=== PATIENT | male | born 1995 | race Caucasian/White ===

== ENCOUNTER 2016-05-28 12:26 | Emergency (ER) | payer SELFPAY ==
[~2016-05-28] VITALS: Ht 170.2 cm; Wt 102.1 kg
[~2016-05-28 12:26] MED LIST: CETI10CA PO; FLUT16SP22 NS; KETO10TA PO; LVT.05T PO; ONDA4TAB8 PO; ORPH100T PO
[2016-05-28] MEDS ORDERED: ACETAMINOPHEN 325 MG TABLET/CAPLET (TYLENOL) PO STA (12:44)
--- NOTE | 2016-05-28 12:51 | ED Lower Extremity ---
General Chief Complaint: Lower Extremity Stated Complaint: LEG PAIN Nursing Triage Note: PT CO OF NUMBNESS IN EXT BILATERALLY, ARRIVED BY EMS FROM WORK, PT STATES HAS HAD N/V/D FOR APPROX 2 DAYS, PT STATES IS UNDER ALOT OF STRESS W WORK AND SCHOOL. PT STATES HAS ALSO HAD FEVER.MASK APPLIED UPON ARRIVAL Nursing Sepsis Screen: No Definite Risk History of Present Illness Time seen by provider: 12:30 Initial Comments Patient presents via EMS for lower extremity weakness. He also reports having fevers, cough, nausea, vomiting, & diarrhea for 3 days. Onset: other (3 days) Severity: moderate Pain/Injury Location: bilateral hip, bilateral leg, bilateral knee Method of Injury: unknown Modifying Factors: Improves With Rest Allergies and Home Medications Allergies Coded Allergies: No Known Drug Allergies (Unverified , 12/25/11) Home Medications Levothyroxine Sodium 50 Mcg Tablet 1 EACH PO DAILY (Reported) Constitutional: no symptoms reported see HPI EENTM: no symptoms reported see HPINo ear discharge, No ear pain, No hearing loss, No nose congestion, No throat pain Respiratory: see HPI cough dyspnea on exertion Cardiovascular: no symptoms reported see HPI Gastrointestinal: no symptoms reported diarrhea (last episode yesterday.) loss of appetite nausea vomiting (30 minutes prior to arrival, ) Genitourinary: no symptoms reported see HPI Musculoskeletal: see HPI joint pain muscle pain (bilateral lower extremities) muscle cramps Skin: no symptoms reported see HPI Psychiatric/Neurological: No Symptoms Reported See HPI All Other Systems Reviewed Negative Unless Noted: Yes Past Oxilynb-Lubznw-Whbyxn Hx Patient Social History Alcohol Use: Denies Use Recreational Drug Use: No Smoking Status: Never a Smoker Recent Foreign Travel: No Contact w/Someone Who Travel: No Recent Infectious Disease Expo: No Recent Hopitalizations: No Physical Abuse Screen: No Sexual Abuse: No Surgeries HX Surgeries: Yes (MOLE REMOVAL) Surgeries: Tonsillectomy Respiratory Hx Respiratory Disorders: No Cardiovascular Hx Cardiac Disorders: No Neurological Hx Neurological Disorders: No Reproductive System Hx Reproductive Disorders: No Genitourinary Hx Genitourinary Disorders: No Gastrointestinal Hx Gastrointestinal Disorders: No Musculoskeletal Hx Musculoskeletal Disorders: No Endocrine Hx Endocrine Disorders: Yes Endocrine Disorders: Hypothyroidsim HEENT HX ENT Disorders: No Cancer Hx Cancer: No Psychosocial Hx Psychiatric Problems: No Integumentary HX Skin/Integumentary Disorder: No Blood Transfusions Hx Blood Disorders: No Reviewed Nursing Assessment Reviewed/Agree w Nursing PMH: Yes Physical Exam Vital Signs Vital Sign - Last 12Hours 05/28/16 12:26 Temp 101.0 Pulse 124 Resp 20 B/P 139/78 Pulse Ox 95 O2 Delivery Room Air Capillary Refill : Less Than 3 Seconds General Appearance: WD/WN no apparent distress HEENT: PERRL/EOMI normal ENT inspection TMs normal pharynx normal Neck: non-tender full range of motion normal inspectionNo lymphadenopathy (R) , No lymphadenopathy (L) Cardiovascular: normal peripheral pulses regular rate, rhythm no edema no gallop no JVD no murmur Respiratory: chest non-tender lungs clear normal breath sounds no respiratory distress no accessory muscle use Gastrointestinal: normal bowel sounds soft no organomegaly no pulsatile massNo distended, No guarding, No rebound, tenderness (generalized)No hepatomegaly, No spleenomegaly Back: normal inspection no CVA tenderness no vertebral tenderness Hips: bilateral hip non-tender, bilateral hip normal inspection, bilateral hip limited range of motion (secondary to muscle weakness) Legs: bilateral leg non-tender, bilateral leg normal inspection, bilateral leg limited range of motion (secondary to muscle weakness) Knees: bilateral knee non-tender, bilateral knee normal inspection Ankles: bilateral ankle non-tender, bilateral ankle normal inspection, bilateral ankle normal range of motion Feet: bilateral foot non-tender, bilateral foot normal inspection, bilateral foot normal range of motion Reflexes: 2+ knee (R), 2+ knee (L), 2+ ankle (R), 2+ ankle (L) Neurologic/Tendon: normal sensation normal motor functions normal tendon functions responds to pain Neurologic/Psychiatric: no motor/sensory deficits alert normal mood/affect oriented x 3 Skin: normal color diaphoresis Lymphatic: no adenopathy Comments On initial exam patient has limited motion in the knees bilaterally and hips, secondary to muscle pain and spasms. His neurovascular status is intact bilateral lower extremities. Negative Homans sign bilaterally. Progress/Results/Core Measures Results/Orders Lab Results Laboratory Tests Test 05/28/16 12:25 05/28/16 13:32 Range/Units Alanine Aminotransferase (ALT/SGPT) 23 0-55 U/L Albumin 4.1 3.2-4.5 G/DL Alkaline Phosphatase 48 40-136 U/L Anion Gap 13 5-14 MMOL/L Aspartate Amino Transf (AST/SGOT) 53 H 5-34 U/L BUN/Creatinine Ratio 9 Basophils # (Auto) 0.0 0.0-0.1 10^3/uL Basophils (%) (Auto) 0 0-10 % Blood Urea Nitrogen 10 7-18 MG/DL Calcium Level 8.7 8.5-10.1 MG/DL Carbon Dioxide Level 18 L 21-32 MMOL/L Chloride Level 106 98-107 MMOL/L Creatinine 1.10 0.60-1.30 MG/DL Eosinophils # (Auto) 0.1 0.0-0.3 10^3/uL Eosinophils (%) (Auto) 1 0-10 % Estimat Glomerular Filtration Rate > 60 Glucose Level 88 70-105 MG/DL Hematocrit 41 40-54 % Hemoglobin 14.6 13.3-17.7 G/DL Lymphocytes # (Auto) 1.3 1.0-4.0 X 10^3 Lymphocytes (%) (Auto) 20 12-44 % Mean Corpuscular Hemoglobin 30 25-34 PG Mean Corpuscular Hemoglobin Concent 35 32-36 G/DL Mean Corpuscular Volume 84 80-99 FL Mean Platelet Volume 10.2 7.4-10.4 FL Monocytes # (Auto) 0.6 0.0-1.0 X 10^3 Monocytes (%) (Auto) 9 0-12 % Neutrophils # (Auto) 4.6 1.8-7.8 X 10^3 Neutrophils (%) (Auto) 70 42-75 % Platelet Count 207 130-400 10^3/uL Potassium Level 3.8 3.6-5.0 MMOL/L Red Blood Count 4.92 4.35-5.85 10^6/uL Red Cell Distribution Width 12.1 10.0-14.5 % Sodium Level 137 135-145 MMOL/L Total Bilirubin 0.7 0.1-1.0 MG/DL Total Protein 6.7 6.4-8.2 G/DL White Blood Count 6.5 4.3-11.0 10^3/uL Urine Bacteria NEGATIVE /HPF Urine Bilirubin NEGATIVE NEGATIVE Urine Casts NONE /LPF Urine Clarity CLEAR Urine Color YELLOW Urine Crystals NONE /LPF Urine Culture Indicated NO Urine Glucose (UA) NEGATIVE NEGATIVE Urine Ketones NEGATIVE NEGATIVE Urine Leukocyte Esterase NEGATIVE NEGATIVE Urine Mucus NEGATIVE /LPF Urine Nitrite NEGATIVE NEGATIVE Urine Protein 1+ H NEGATIVE Urine RBC NONE /HPF Urine RBC (Auto) NEGATIVE NEGATIVE Urine Specific [place] 1.025 H 1.016-1.022 Urine Squamous Epithelial Cells 0-2 /HPF Urine Urobilinogen NORMAL NORMAL MG/DL Urine WBC NONE /HPF Urine pH 6 5-9 Micro Results Microbiology 05/28/16 Influenza Types A,B Antigen (ANTHONY) - Final, Complete My Orders Orders-GAYE WALTERS Cbc With Automated Diff (05/28/16 12:44) Comprehensive Metabolic Panel (05/28/16 12:44) Ua Culture If Indicated (05/28/16 12:44) Influenza A And B Antigens (05/28/16 12:44) Acetaminophen Tablet/Caplet (Tylenol T (05/28/16 12:44) Ibuprofen Tablet (Motrin Tablet) (05/28/16 13:38) Vital Signs/I&O Vital Sign - Last 12Hours 05/28/16 05/28/16 12:26 15:21 Temp 101.0 99.5 Pulse 124 88 Resp 20 20 B/P 139/78 Pulse Ox 95 95 O2 Delivery Room Air Blood Pressure Mean: 98 Progress Note : Time: 12:30 Progress Note Initial evaluation completed, Tylenol 650 mg by mouth to be given. CBC UA CMP and influenza testing. Patient did not get an Influenza vaccine this year. 1335 Temp 102.2; Ibuprofen 800 mg po. 1345 required assistance of two staff for patient to stand to obtain UA. He has slight improvement in the motion in his hips and knees. Weakness when trying to stand. 1445 Temp down to 99, patient reports that he is feeling better. He can actively flex and extend his knees and hips, with less pain. He can ambulate with no assistance. He reports that Muscle spasms and cramps are improving. Departure Impression Impression: Primary Impression: Viral syndrome Disposition: HOME, SELF-CARE Condition: Stable Departure-Patient Inst. Referrals: ADALGISA VASQUEZ MD (PCP/Family) Primary Care Physician Patient Instructions: VIRAL SYNDROME Add. Discharge Instructions: All discharge instructions reviewed with patient and/or family. Voiced understanding. Rest, increase fluid intake. Return to work when afebrile. Alternate Tylenol 650 mg and Ibuprofen 800 mg every 4 hours. Return to Emergency Dept or Primary Care Provider if symptoms worsen. Work/School Note: Work Release Form Return to Work: May 30, 2016 Restrictions: No Restrictions, Return-No Fever (24hrs) SELENA,GAYE CAREER SERVICES OFFICER May 28, 2016 12:51
[2016-05-28 12:52] LABS: BASOPHILS % (AUTO) 0 % (0-10); EOSINOPHILS # (AUTO) 0.1 10^3/uL (0.0-0.3); EOSINOPHILS % (AUTO) 1 % (0-10); LYMPHOCYTES # (AUTO) 1.3 X 10^3 (1.0-4.0); LYMPHOCYTES % (AUTO) 20 % (12-44); MEAN CORPUSCULAR HEMOGLOBIN 30 PG (25-34); MEAN CORPUSCULAR HGB CONC 35 G/DL (32-36); MEAN CORPUSCULAR VOLUME 84 FL (80-99); MEAN PLATELET VOLUME 10.2 FL (7.4-10.4); MONOCYTES # (AUTO) 0.6 X 10^3 (0.0-1.0); MONOCYTES % (AUTO) 9 % (0-12); NEUTROPHILS # (AUTO) 4.6 X 10^3 (1.8-7.8); NEUTROPHILS % (AUTO) 70 % (42-75); PLATELET COUNT 207 10^3/uL (130-400); RED BLOOD COUNT 4.92 10^6/uL (4.35-5.85); RED CELL DISTRIBUTION WIDTH 12.1 % (10.0-14.5); WHITE BLOOD COUNT 6.5 10^3/uL (4.3-11.0)
[2016-05-28 13:06] LABS: ALANINE AMINOTRANSFERASE 23 U/L (0-55); ALBUMIN 4.1 G/DL (3.2-4.5); ANION GAP 13 MMOL/L (5-14); ASPARTATE AMINO TRANSFERASE 53 U/L (5-34); BILIRUBIN,TOTAL 0.7 MG/DL (0.1-1.0); BLOOD UREA NITROGEN 10 MG/DL (7-18); BUN/CREATININE RATIO 9; CALCIUM 8.7 MG/DL (8.5-10.1); CARBON DIOXIDE 18 MMOL/L (21-32); CHLORIDE 106 MMOL/L (98-107); GFR ESTIMATED > 60; GLUCOSE 88 MG/DL (70-105); POTASSIUM 3.8 MMOL/L (3.6-5.0); SODIUM 137 MMOL/L (135-145); TOTAL PROTEIN 6.7 G/DL (6.4-8.2)
[2016-05-28] MEDS ORDERED: IBUPROFEN 800 MG (MOTRIN) TAB PO STA (13:38)
[2016-05-28 13:42] LABS: BILIRUBIN,URINE NEGATIVE (NEGATIVE); KETONES,URINE NEGATIVE (NEGATIVE); LEUKOCYTE ESTERASE ,URINE NEGATIVE (NEGATIVE); NITRITE,URINE NEGATIVE (NEGATIVE); PH,URINE 6 (5-9); PROTEIN,URINE 1+ (NEGATIVE); UROBILINOGEN,URINE NORMAL (NORMAL)
[2016-05-28 13:49] LABS: SQUAMOUS EPITHELIAL CELL,UR 0-2 /HPF
[2016-05-28 15:21] VITALS: BP 128/78
== END 2016-05-28 15:21 | disposition home or self-care (01) ==
LOC: EDUNIT# 12:26 → ER 12:27
DX: R50.9 Fever, unspecified (principal); B34.9 Viral infection, unspecified
CPT/HCPCS: 36415; 80053; 81000; 85025; 87804

== ENCOUNTER 2016-09-09 11:39 | Emergency (ER) | payer SELFPAY ==
[~2016-09-09] VITALS: Ht 167.6 cm; Wt 106.6 kg
[2016-09-09] MEDS ORDERED: ERYT1OIN6 OP (12:19)
--- NOTE | 2016-09-09 12:19 | ED EENT ---
History of Present Illness General Chief Complaint: Eye Problems Stated Complaint: L EYE POSS PINK EYE Source: patient Exam Limitations: no limitations History of Present Illness Time seen by provider: 12:16 Initial Comments Brought to ER by his mother with reports of a reddened left eye since yesterday. No known foreign bodies, no discomfort no vision changes. He's had a bit of discharge in the mornings. He does not wear contact lenses Timing/Duration: abrupt Severity: moderate Location: eye (L) Associated Symptoms: denies symptoms Allergies and Home Medications Allergies Coded Allergies: No Known Drug Allergies (Unverified , 12/25/11) Home Medications Levothyroxine Sodium 50 Mcg Tablet, 1 EACH PO DAILY, (Reported) Review of Systems Constitutional: see HPI Eyes: See HPI Ears: No Symptoms Reported Nose: no symptoms reported Mouth: no symptoms reported Throat: no symptoms reported Respiratory: no symptoms reported Cardiovascular: no symptoms reported Musculoskeletal: no symptoms reported Past Jumecxl-Qkxads-Sumvvs Hx Patient Social History Recent Foreign Travel: No Contact w/Someone Who Travel: No Recent Hopitalizations: No Surgeries HX Surgeries: Yes (MOLE REMOVAL) Surgeries: Tonsillectomy Respiratory Hx Respiratory Disorders: No Cardiovascular Hx Cardiac Disorders: No Neurological Hx Neurological Disorders: No Reproductive System Hx Reproductive Disorders: No Genitourinary Hx Genitourinary Disorders: No Gastrointestinal Hx Gastrointestinal Disorders: No Musculoskeletal Hx Musculoskeletal Disorders: No Endocrine Hx Endocrine Disorders: Yes Endocrine Disorders: Hypothyroidsim HEENT HX ENT Disorders: No Cancer Hx Cancer: No Psychosocial Hx Psychiatric Problems: No Integumentary HX Skin/Integumentary Disorder: No Blood Transfusions Hx Blood Disorders: No Physical Exam General Appearance: WD/WN, no apparent distress Eyes: left eye other (there is some conjunctival erythema of the left eye with a bit of drainage, matting lateral canthus), bilateral eye EOMI, bilateral eye PERRL Ears: bilateral ear TM normal, bilateral ear auricle normal, bilateral ear canal normal Neck: non-tender, full range of motion Respiratory: normal breath sounds, no respiratory distress, no accessory muscle use Gastrointestinal: normal bowel sounds, non tender, soft Neurologic/Psychiatric: alert, normal mood/affect, oriented x 3 Skin: normal color, warm/dry Departure Impression Impression: Primary Impression: Conjunctivitis Disposition: 01 HOME, SELF-CARE Condition: Stable Departure-Patient Inst. Decision time for Depature: 12:17 Referrals: ADALGISA VASQUEZ MD (PCP/Family) Primary Care Physician Patient Instructions: Conjunctivitis ([place]) (DC) Add. Discharge Instructions: 1. Apply the antibiotic ointment as directed 2. Return to ER for any worsening 3. See your eye doctor next week All discharge instructions reviewed with patient and/or family. Voiced understanding. Scripts Erythromycin Base (Erythromycin Opthalmic Ointment) 1 Gm Oint...g. 0 OP Q6H, #1 TUBE 1/2 inch every 6 hours 4 days Prov: SYBIL SANCHEZ APRN 09/09/16 Work/School Note: Work Release Form Date Seen in the Emergency Department: Sep 09, 2016 Return to Work: Sep 11, 2016 Restrictions: No Restrictions SYBIL SANCHEZ APRN Sep 09, 2016 12:19
[2016-09-09 12:21] VITALS: BP 136/85
== END 2016-09-09 12:21 | disposition home or self-care (01) ==
LOC: EDUNIT# 11:39 → ER 11:41
DX: H10.32 Unspecified acute conjunctivitis, left eye (principal)
CPT/HCPCS: 99282

== ENCOUNTER 2016-12-13 06:52 | Emergency (ER) | payer OTHER ==
[~2016-12-13] VITALS: Ht 170.2 cm; Wt 108.9 kg
[~2016-12-13 06:52] MED LIST changes: +ERYT1OIN6 OP
[2016-12-13] MEDS ORDERED: LIDOCAINE/EPI 2% 1:100,00 (XYLOCAINE) 20 ML VIAL ONE (07:14)
--- NOTE | 2016-12-13 07:17 | ED Integumentary General ---
General Stated Complaint: LOWER BACK PAIN Source: patient History of Present Illness Time seen by provider: 07:12 Initial Comments PT ARRIVES VIA POV C/O PAIN AND SWELLING TO LOWER BACK/UPPER BUTTOCKS AREA SINCE Sunday12/09/16 NO INJURY NO FEVER NO PRIOR HISTORY OF SIMILAR NO DRAINAGE FROM AREA HAS NOT TAKEN ANYTHING FOR PAIN PCP: DR. VASQUEZ Allergies and Home Medications Allergies Coded Allergies: No Known Drug Allergies (Unverified , 12/25/11) Home Medications Clindamycin HCl 300 Mg Capsule, 300 MG PO QID, #40 Prescribed by: THEODORE GARCIA on 12/13/16 0753 Erythromycin Base 1 Gm Oint...g., 0 OP Q6H, #1 1/2 inch every 6 hours 4 days Prescribed by: SYBIL SANCHEZ on 09/09/16 1219 Hydrocodone/Ibuprofen 1 Each Tablet, 1-2 EACH PO Q4H, #20 Prescribed by: THEODORE GARCIA on 12/13/16 0753 Levothyroxine Sodium 50 Mcg Tablet, 1 EACH PO DAILY, (Reported) Constitutional: no symptoms reported Genitourinary: no symptoms reported Musculoskeletal: see HPI Skin: see HPI Psychiatric/Neurological: No Symptoms Reported Endocrine: No Symptoms Reported Past Khjvaba-Cagozi-Qcytql Hx Patient Social History Recent Foreign Travel: No Contact w/Someone Who Travel: No Recent Hopitalizations: No Immunizations Up To Date Tetanus Booster (TDap): Less than 5yrs PED Vaccines UTD: Yes Surgeries HX Surgeries: Yes (MOLE REMOVAL) Surgeries: Tonsillectomy Respiratory Hx Respiratory Disorders: No Cardiovascular Hx Cardiac Disorders: No Neurological Hx Neurological Disorders: No Reproductive System Hx Reproductive Disorders: No Genitourinary Hx Genitourinary Disorders: No Gastrointestinal Hx Gastrointestinal Disorders: No Musculoskeletal Hx Musculoskeletal Disorders: No Endocrine Hx Endocrine Disorders: Yes Endocrine Disorders: Hypothyroidsim HEENT HX ENT Disorders: No Cancer Hx Cancer: No Psychosocial Hx Psychiatric Problems: No Integumentary HX Skin/Integumentary Disorder: No Blood Transfusions Hx Blood Disorders: No Physical Exam Vital Signs Vital Sign - Last 12Hours 12/13/16 07:18 Temp 98.2 Pulse 90 Resp 16 B/P (MAP) 125/100 Pulse Ox 98 O2 Delivery Ambu-Bag Capillary Refill : General Appearance: no apparent distress, obese, other (LOOKS UNCOMFORTABLE) Back: other (LARGE PILONIDIAL CYST/ABSCESS, NO DRAINAGE. NO STREAKS) Neurologic/Psychiatric: diamond polisher II-XII nml as tested, no motor/sensory deficits, alert, oriented x 3 Skin: normal color, warm/dry, other ( ABOVE) I&D : Site: PILONIDAL AREA Blade Size: 11 I & D Procedure: betadine prep, sterile drapes applied, gauze wick placed, Wound Packing Packing/Drain: Idoform 1/ Progress AREA CLEANSED WITH BETADINE STERILE DRAPES PLACED INJECTED WITH 2% LIDOCAINE/EPI INCISED WITH #11 BLADE PROFUSE AMOUNT OF PURULENT, FOUL-SMELLING DRAINAGE EXPELLED PROBED TO BREAK UP LOCULATIONS IRRIGATED WITH STERIL SALINE 1/4" IODOFORM GAUZE PACKING PLACED DRESSED WITH STERILE DRESSING PT TOLERATED WELL Progress/Results/Core Measures Results/Orders My Orders Orders - THEODORE GARCIA DO Lidocaine/Epi 2% 1:100,000 (Xylocaine/Ep (12/13/16 07:14) Wound Culture (12/13/16 07:48) Medications Given in ED Current Medications Medications Dose Ordered Sig/Mc Route Start Time Stop Time Status Last Admin Dose Admin Lidocaine/ Epinephrine 20 ml STK-MED ONCE .ROUTE 12/13/16 07:14 12/13/16 07:21 DC 12/13/16 07:33 20 ML Vital Signs/I&O Vital Sign - Last 12Hours 12/13/16 12/13/16 07:18 07:59 Temp 98.2 97.8 Pulse 90 88 Resp 16 16 B/P (MAP) 125/100 Pulse Ox 98 98 O2 Delivery Ambu-Bag Departure Impression Impression: Primary Impression: Pilonidal cyst with abscess Disposition: 01 HOME, SELF-CARE Condition: Stable Departure-Patient Inst. Referrals: SENIA BAEZA MD, RACHEL L MD (PCP/Family) Primary Care Physician Patient Instructions: Abscess Incision and Drainage (DC), Pilonidal Cyst (DC) Add. Discharge Instructions: LEAVE PACKING IN PLACE--WILL NEED TO BE RE-PACKED EVERY [address] YOU MAY CHANGE DRESSING 1-2 TIMES A DAY OR MORE OFTEN IF NEEDED FOLLOW UP WITH DR. BAEZA THIS WEEK FOR FURTHER CARE Scripts Hydrocodone/Ibuprofen (Hydrocodone-Ibuprofen 7.5-200) 1 Each Tablet 1-2 EACH PO Q4H for Pain, #20 TAB Prov: THEODORE GARCIA DO 12/13/16 Clindamycin HCl (Clindamycin HCl) 300 Mg Capsule 300 MG PO QID for FOR INFECTION, #40 CAP Prov: THEODORE GARCIA DO 12/13/16 Images Torso/Trunk 1 - Severe, Cellulitis, Swelling, Tenderness THEODORE GARCIA DO Dec 13, 2016 07:17
[2016-12-13] MEDS ORDERED: HYDR-87 PO (07:53)
[2016-12-13] MEDS ORDERED: CLIN300C11 PO (07:53)
[2016-12-13 07:59] VITALS: BP 122/90
--- OUTSIDE RECORDS SUMMARY | 2016-12-20 21:35 | XMS REPORT | Continuity of Care Document ---
Author Author [facility] Address Unknown Phone Unavailable Allergies Active Description Code Type Severity Reaction Onset Reported/Identified Relationship to Patient Clinical Status Yes No Known Drug Allergies [id number] Drug Allergy Unknown N/ A 12/25/2011 Medications Problems Date Dx Coded Attending Type Code Diagnosis Diagnosed By 03/20/2009 SABRINA MARTINEZ DO3.89 MENINGOCOCCAL, OTHER SPECIFIED SINGLE BACTERIAL DISEASE 03/20/2009 SABRINA MARTINEZ DO V05.3 HEPATITIS VIRAL/ALL 03/20/2009 SABRINA MARTINEZ DO V05.4 VARICELLA, CHICKENPOX 03/20/2009 SABRINA MARTINEZ DO V06.5 DT, TETANUS-DIPHTHERIA [Td] ,TDAP 03/20/2009 SABRINA MARTINEZ DO V03.89 MENINGOCOCCAL, OTHER SPECIFIED SINGLE BACTERIAL DISEASE 03/20/2009 SABRINA MARTINEZ DO V05.3 HEPATITIS VIRAL/ALL 03/20/2009 SABRINA MARTINEZ DO V05.4 VARICELLA, CHICKENPOX 03/20/2009 SABRINA MARTINEZ DO V06.5 DT, TETANUS-DIPHTHERIA [Td] ,TDAP 03/20/2009 SABRINA MARTINEZ DO V03.89 MENINGOCOCCAL, OTHER SPECIFIED SINGLE BACTERIAL DISEASE 03/20/2009 SABRINA MARTINEZ DO V05.3 HEPATITIS VIRAL/ALL 03/20/2009 SABRINA MARTINEZ DO V05.4 VARICELLA, CHICKENPOX 03/20/2009 SABRINA MARTINEZ DO V06.5 DT, TETANUS-DIPHTHERIA [Td] ,TDAP 03/14/2013 SABRINA MARTINEZ DO V04.81 FLU SHOT 03/14/2013 SABRINA MARTINEZ DO V04.89 GARDASIL (HPV) DX 03/14/2013 MARTINEZ SABRINA SUBRAMANIAN V04.81 FLU SHOT 03/14/2013 MARTINEZ SABRINA SUBRAMANIAN V04.89 GARDASIL (HPV) DX 03/14/2013 SABRINA MARTINEZ DO V04.81 FLU SHOT 03/14/2013 SABRINA MARTINEZ DO V04.89 GARDASIL (HPV) DX 07/28/2015 Ot 709.9 07/28/2015 Ot V72.84 07/28/2015 Ot 216.5 07/28/2015 THEODORE GARCIA DO Ot R10.31 RIGHT LOWER QUADRANT PAIN 05/24/2016 Ot 709.9 SKIN DISORDER NOS 05/24/2016 Ot V72.84 EXAM PRE-OPERATIVE NOS 05/24/2016 Ot 216.5 BENIGN GAYATRI SKIN TRUNK 05/28/2016 SELENA GAYE NICKIE Ot B34.9 VIRAL INFECTION, UNSPECIFIED 05/28/2016 SLEENA GAYE NICKIE Ot R50.9 FEVER, UNSPECIFIED 09/09/2016 SYBIL SANCHEZ APRN Ot H10.32 UNSPECIFIED ACUTE CONJUNCTIVITIS, LEFT E 09/09/2016 SYBIL SANCHEZ APRN Ot H57.9 UNSPECIFIED DISORDER OF EYE AND ADNEXA 09/11/2016 SYBIL SANCHEZ APRN Ot H10.32 UNSPECIFIED ACUTE CONJUNCTIVITIS, LEFT E 09/11/2016 SYBIL SANCHEZ APRN Ot H57.9 UNSPECIFIED DISORDER OF EYE AND ADNEXA 11/09/2016 Ot 709.9 SKIN DISORDER NOS 11/09/2016 Ot V72.84 EXAM PRE-OPERATIVE NOS 11/09/2016 Ot 216.5 BENIGN GAYATRI SKIN TRUNK 11/29/2016 Ot 709.9 SKIN DISORDER NOS 11/29/2016 Ot V72.84 EXAM PRE-OPERATIVE NOS 11/29/2016 Ot 216.5 BENIGN GAYATRI SKIN TRUNK 12/13/2016 Ot 709.9 SKIN DISORDER NOS 12/13/2016 Ot V72.84 EXAM PRE-OPERATIVE NOS 12/13/2016 Ot 216.5 BENIGN GAYATRI SKIN TRUNK Procedures Results Test Result Range Complete blood count (CBC) with automated white blood cell (WBC) differential - 05/28/16 12:25 Blood leukocytes automated count (number/volume) 6.5 10*3/ uL 4.3-11.0 Blood erythrocytes automated count (number/volume) 4.92 10*6 /uL 4.35-5.85 Venous blood hemoglobin measurement (mass/volume) 14.6 g/dL 13.3-17.7 Blood hematocrit (volume fraction) 41 % 40-54 Automated erythrocyte mean corpuscular volume 84 [foz_us] 80-99 Automated erythrocyte mean corpuscular hemoglobin (mass per erythrocyte) 30 pg 25-34 Automated erythrocyte mean corpuscular hemoglobin concentration measurement ( mass/volume) 35 g/dL 32-36 Automated erythrocyte distribution width ratio 12.1 % 10.0-14.5 Automated blood platelet count (count/volume) 207 10*3/uL 130-400 Automated blood platelet mean volume measurement 10.2 [foz_ us] 7.4-10.4 Automated blood neutrophils/100 leukocytes 70 % 42-75 Automated blood lymphocytes/100 leukocytes 20 % 12-44 Blood monocytes/100 leukocytes 9 % 0-12 Automated blood eosinophils/100 leukocytes 1 % 0-10 Automated blood basophils/100 leukocytes 0 % 0-10 Blood neutrophils automated count (number/volume) 4.6 10*3 1.8-7.8 Blood lymphocytes automated count (number/volume) 1.3 10*3 1.0-4.0 Blood monocytes automated count (number/volume) 0.6 10*3 0.0-1.0 Automated eosinophil count 0.1 10*3/uL 0.0-0.3 Automated blood basophil count (count/volume) 0.0 10*3/uL 0.0-0.1 Comprehensive metabolic panel - 05/28/16 12:25 Serum or plasma sodium measurement (moles/volume) 137 mmol/ L 135-145 Serum or plasma potassium measurement (moles/volume) 3.8 mmol/L 3.6-5.0 Serum or plasma chloride measurement (moles/volume) 106 mmol /L 98-107 Carbon dioxide 18 mmol/L 21-32 Serum or plasma anion gap determination (moles/volume) 13 mmol/L 5-14 Serum or plasma urea nitrogen measurement (mass/volume) 10 mg/dL 7-18 Serum or plasma creatinine measurement (mass/volume) 1.10 mg /dL 0.60-1.30 Serum or plasma urea nitrogen/creatinine mass ratio 9 NRG Serum or plasma creatinine measurement with calculation of estimated glomerular filtration rate > NRG Serum or plasma glucose measurement (mass/volume) 88 mg/dL 70-105 Serum or plasma calcium measurement (mass/volume) 8.7 mg/dL 8.5-10.1 Serum or plasma total bilirubin measurement (mass/volume) 0.7 mg/dL 0.1-1.0 Serum or plasma alkaline phosphatase measurement (enzymatic activity/volume) 48 U/L 40-136 Serum or plasma aspartate aminotransferase measurement (enzymatic activity/ volume) 53 U/L 5-34 Serum or plasma alanine aminotransferase measurement (enzymatic activity/volume ) 23 U/L 0-55 Serum or plasma protein measurement (mass/volume) 6.7 g/dL 6.4-8.2 Serum or plasma albumin measurement (mass/volume) 4.1 g/dL 3.2-4.5 Influenza virus A and B antigen detection - 05/28/16 12:25 FLU RESULT NEGATIVE FOR INFLUENZA A AND B ANTIGENS BY IA NRG Complete urinalysis with reflex to culture - 05/28/16 13:32 Urine color determination YELLOW NRG Urine clarity determination CLEAR NRG Urine pH measurement by test strip 6 5- 9 Specific gravity of urine by test strip 1.025 1.016-1.022 Urine protein assay by test strip, semi-quantitative 1+ NEGATIVE Urine glucose detection by automated test strip NEGATIVE NEGATIVE Erythrocytes detection in urine sediment by light microscopy NEGATIVE NEGATIVE Urine ketones detection by automated test strip NEGATIVE NEGATIVE Urine nitrite detection by test strip NEGATIVE NEGATIVE Urine total bilirubin detection by test strip NEGATIVE NEGATIVE Urine urobilinogen measurement by automated test strip (mass/volume) NORMAL NORMAL Urine leukocyte esterase detection by dipstick NEGATIVE NEGATIVE Automated urine sediment erythrocyte count by microscopy (number/high power field) NONE NRG Automated urine sediment leukocyte count by microscopy (number/high power field ) NONE NRG Bacteria detection in urine sediment by light microscopy NEGATIVE NRG Squamous epithelial cells detection in urine sediment by light microscopy 0-2 NRG Crystals detection in urine sediment by light microscopy NONE NRG Casts detection in urine sediment by light microscopy NONE NRG Mucus detection in urine sediment by light microscopy NEGATIVE NRG Complete urinalysis with reflex to culture NO NRG Gram stain microscopy - 12/13/16 07:45 GRAM STAIN RESULT RARE GRAM POSITIVE ARNULFO NRG Bacteria identification in wound by culture - 12/13/16 07:45 Bacteria identification in wound by culture [id number] NRG FREE TEXT EXTERNAL STREPTOCOCCUS CONSTELLATUS NRG QUANTITY OF GROWTH Moderate Growth NRG FREE TEXT ENTRY 2 (STREP.ANGINOSUS GROUP) NRG Encounters ACCT No. Visit Date/Time Discharge Status Pt. Type Provider Facility Loc./Unit Complaint [id number] 09/12/2013 14:58:00 09/12/2013 23: 59:59 CLS Outpatient SABRINA MARTINEZ DO [id number] 06/20/2013 15:19:00 06/20/2013 23: 59:59 CLS Outpatient SABRINA MARTINEZ DO [id number] 03/14/2013 15:22:00 03/14/2013 23: 59:59 [facility] Outpatient SABRINA MARTINEZ DO
[2016-12-21] MEDS ORDERED: HYDR-3816 PO (15:19)
== END 2016-12-13 07:59 | disposition home or self-care (01) ==
LOC: EDUNIT# 06:52 → ER 06:54
DX: L05.01 Pilonidal cyst with abscess (principal); E03.9 Hypothyroidism, unspecified; Z90.89 Acquired absence of other organs
CPT/HCPCS: 87070; 87077; 87205

== ENCOUNTER 2016-12-21 10:48 | Day surgery (SDC) | payer OTHER ==
[~2016-12-21] VITALS: Ht 170.2 cm; Wt 108.9 kg
[~2016-12-21 10:48] MED LIST changes: +CLIN300C11 PO; +HYDR-87 PO
[2016-12-21] MEDS ORDERED: ceFAZolin 1 GM/NS 50 ML IVPB IV ONE ×2 (11:15)
[2016-12-21] MEDS ORDERED: LEVO75TA6 PO (11:27)
[2016-12-21 11:31] VITALS: BP 144/83
[2016-12-21] MEDS ORDERED: BUP/EPI 0.5% 1:200,000 (MARCAINE) 10ML VIAL IJ ONE (12:20)
[2016-12-21] MEDS ORDERED: fentaNYL INJECTION 100 MCG/2 ML AMP ONE ×2 (12:59→13:52)
[2016-12-21] MEDS ORDERED: LACTATED RINGERS 1,000 ML IV PRN (13:03)
[2016-12-21] MEDS ORDERED: MIDAZOLAM 2 MG/2 ML (VERSED) VIAL IV ONE (13:15)
--- NOTE | 2016-12-21 13:27 | Progress Note-Pre Operative ---
Pre-Operative Progress Note H&P Reviewed The H&P was reviewed, patient examined and no changes noted. Date Seen by Provider: Dec 21, 2016 Time Seen by Provider: 13:15 Date H&P Reviewed: Dec 21, 2016 Time H&P Reviewed: 13:15 Pre-Operative Diagnosis: symptomatic pilonidal cyst SENIA BAEZA MD Dec 21, 2016 13:27
[2016-12-21] MEDS ORDERED: HYDROcodone/APAP 5 MG/325 MG (LORTAB) TAB PO PRN (13:30)
[2016-12-21] MEDS ORDERED: ACETAMINOPHEN 325 MG TABLET/CAPLET (TYLENOL) PO PRN (13:30)
[2016-12-21] MEDS ORDERED: morphine INJ 10 MG/ML 1ML (SYR OR VIAL) IV PRN (13:30)
[2016-12-21] MEDS ORDERED: ONDANSETRON 4 MG/2 ML (SDV) Z0FRAN IV PRN (13:30)
[2016-12-21] MEDS ORDERED: morphine INJ 10 MG/ML 1ML (SYR OR VIAL) ONE (14:24)
[2016-12-21] MEDS ORDERED: LIDOCAINE PF 2% 5 ML (XYLOCAINE) VIAL ONE (14:42)
[2016-12-21] MEDS ORDERED: proPOfol 200 MG/20 ML (DIPRIVAN) VIAL IV ONE (14:42)
[2016-12-21] MEDS ORDERED: ROCURONIUM 50 MG/5 ML (ZEMURON) VIAL IV ONE (14:42)
[2016-12-21] MEDS ORDERED: LACTATED RINGERS 2,000 ML IV ONE (14:42)
[2016-12-21] MEDS ORDERED: GLYCOPYRROLATE 0.2 MG/ML (ROBINUL) 2 ML VIAL ONE (14:42)
[2016-12-21] MEDS ORDERED: SEVOFLURANE (ULTANE) 15 ML INHAL SOLN ONE ×2 (14:42→15:14)
[2016-12-21] MEDS ORDERED: ONDANSETRON 4 MG/2 ML (SDV) Z0FRAN ONE (14:42)
--- NOTE | 2016-12-21 15:18 | Progress Note-Post Operative ---
Post-Operative Progess Note Surgeon (s)/Administrative Representative (s) Surgeon SENIA BAEZA MD Administrative Representative: jem headley GEOMATICS PROFESSOR Pre-Operative Diagnosis symptomatic pilonidal cyst Post-Operative Diagnosis same Procedure & Operative Findings Date of Procedure 12/21/16 Procedure Performed/Findings excision pilonidal cyst. intermediate flap closure 8x4cm Anesthesia Type GET Estimated Blood Loss Estimated blood loss (mL): minimal Specimens/Packing Specimens Removed pilonidal cyst SENIA BAEZA MD Dec 21, 2016 3:18 pm
[2016-12-21] MEDS ORDERED: HYDR-3816 PO (15:19)
--- NOTE | 2016-12-21 15:20 | Discharge Inst-Surgical ---
D/C Lap Instructions-FELISHA New, Converted, or Re-Newed RX: RX on Chart Follow Up Appt in 2 weeks Activity as tolerated No driving for 24 hours No driving while on pain medications Incentive Spirometry use every 2 hours while awake Regular Diet Symptoms to Report: Fever over 101 degree F, Nausea/Vomiting Infection Signs and Symptoms to report: Increased redness, Foul odor of wound, Increased drainage Bathing instructions: May shower Operative Area Clean/Dry; Keep incision clean/dry If any problems/questions: Contact your physician or go to Emergency Room SENIA BAEZA MD Dec 21, 2016 3:20 pm
[2016-12-21] MEDS ORDERED: NEOSTIGMINE (BLOXIVERZ ) 1 MG/1ML 10 ML VIAL ONE (15:23)
[2016-12-21 16:35] VITALS: BP 123/84
[2016-12-21 17:05] VITALS: BP 125/84
[2016-12-21 17:50] VITALS: BP 125/84
--- NOTE | 2016-12-22 11:08 | OPERATIVE REPORT ---
PROCEDURE PHYSICIAN: SENIA MATOS DATE OF PROCEDURE: 12/21/2016 ATTENDING PRIMARY CARE PHYSICIAN: Dr. Cecile Tran. PREOPERATIVE DIAGNOSIS: Chronic symptomatic pilonidal cyst. POSTOPERATIVE DIAGNOSIS: Chronic symptomatic pilonidal cyst. PROCEDURE: Excision of pilonidal cyst, dimensions 8 x 3 cm in size with intermediate flap closure. SURGEON: Dr. Matos. SENIOR [employer] WE[employer] APPLICATION DEVELOPER: Patrice Blunt APRN. ANESTHESIA: General endotracheal. ESTIMATED BLOOD LOSS: Minimal. FINDINGS: Acute on chronic pilonidal cyst with the excised dimensions approximately 8 x 3 cm in size. There are multiple chronic small sinus tracts. DISPOSITION: The patient tolerated the procedure well. Mr. Vishal Segundo is a 21-year-old male who was seen in the emergency department several days ago for pain and drainage of the sacral region. He reported this started several weeks ago and it has become painful and draining yellowish-green material. They did an incision and drainage of an abscess and was placed on antibiotics. On further questioning, he reports he has had some issues in the area multiple times before, however not as severe. Upon examination, he was found to have open area where the previous incision and drainage was performed. However, he also had some chronic sinus tracts just inferior to this consistent with a pilonidal cyst. PROCEDURE: The patient was brought to the operating room and after adequate IV pain and sedative medications and general endotracheal intubation, the patient was placed in the supine position and the buttocks taped laterally. The perineum was then prepped and draped in standard surgical fashion. The sinus tracts were then explored which went more inferiorly. We left the lacrimal probe in place then we proceeded to marked off the site of previous chronic pilonidal cyst sinus tract openings. The diameter of the excised lesion was approximately 8 x 3 cm in size. The skin was then excised using a 15 blade. All of the sinus tract encompassing the lacrimal probe, as well as any chronic inflammatory tissue was then excised using electrocautery. Specimen was sent to pathology. Good hemostasis was observed. We then proceeded with intermediate flap closure. We proceeded with creation of subcutaneous flap encompassing a portion of the gluteus butch muscle layers, as well as the subcutaneous fat, using electrocautery with visualization of good hemostasis. This layer was approximated over the coccyx using 2-0 Vicryl interrupted sutures. The superficial subcutaneous tissue was then reapproximated using 2-0 Vicryl interrupted sutures. Skin was closed using 3-0 nylon interrupted sutures. The wound was then cleaned and covered with dry gauze, followed by ABD pad. The patient tolerated the procedure well. We will start IV and oral pain medication as well as a clear liquid diet. Once he is tolerating clears, has good pain control with oral pain medications and ambulating well, we will discharge him home. He will be instructed to keep the area clean and dry and to do no heavy lifting or exertion at least for the next 2 weeks until the wound is reevaluated. Job ID: [id number] Dictated Date: 12/21/2016 15:27:20 Associate Account Manager Date: 12/22/2016 10:47:01 / lawanda
== END 2016-12-21 17:50 | disposition home or self-care (01) ==
LOC: SDC 10:48
PROVIDERS: ATTEND Surgery
DX: L05.91 Pilonidal cyst without abscess (principal); E03.9 Hypothyroidism, unspecified; Z79.899 Other long term (current) drug therapy
CPT/HCPCS: 87081; 94664

== ENCOUNTER → 2020-06-16 | Outpatient (CLI) | payer SELFPAY ==
[~2020-06-16] MED LIST changes: -CLIN300C11 PO; +CLIN300C12 PO; +HYDR-34 PO; +LEVO75TA6 PO
--- NOTE | 2020-06-16 17:12 | Diagnostic Imaging Report ---
INDICATION: Bilateral lower extremity pain. Bilateral lower extremity arterial Doppler study performed in the routine fashion with color flow Doppler and waveform analysis. On the right side, flow is triphasic in the common femoral artery and SFA and biphasic in the profunda femoris artery. Flow is triphasic in the popliteal artery as well. Flow conversed to monophasic in the dorsalis pedis and distal posterior tibial artery, anterior tibial artery is not well seen. On the left side, flow is triphasic in the common femoral artery and SFA and biphasic in the profunda and popliteal artery. Flow was biphasic in the proximal anterior tibial artery. There is elevated velocity in the posterior tibial artery distally with monophasic flow in the dorsalis pedis and distal posterior tibial artery. IMPRESSION: Evidence of small vessel disease at the tibial level as above. No stenosis or occlusion above the knee level. Dictated by: Dictated on workstation # [id number]
== END ==
LOC: RAD 10:00
PROVIDERS: ATTEND Nurse Practitioner Family
DX: L03.115 Cellulitis of right lower limb (principal); S93.409A Sprain of unspecified ligament of unspecified ankle, initial encounter; E03.9 Hypothyroidism, unspecified; I73.89 Other specified peripheral vascular diseases
CPT/HCPCS: 93925

== ENCOUNTER → 2020-06-25 | Outpatient (CLI) | payer SELFPAY ==
[2020-06-25 14:36] LABS: CHLORIDE 100 MMOL/L (98-107); POTASSIUM 4.2 MMOL/L (3.6-5.0); SODIUM 138 MMOL/L (135-145)
[2020-06-25 14:37] LABS: ALBUMIN 4.2 GM/DL (3.2-4.5)
[2020-06-25 14:38] LABS: CALCIUM 9.3 MG/DL (8.5-10.1); TRIGLYCERIDES 211 MG/DL (<150); VLDL CHOLESTEROL 42 MG/DL (5-40)
[2020-06-25 14:39] LABS: GLUCOSE 192 MG/DL (70-105); TOTAL PROTEIN 7.8 GM/DL (6.4-8.2)
[2020-06-25 14:40] LABS: CARBON DIOXIDE 27 MMOL/L (21-32)
[2020-06-25 14:41] LABS: BILIRUBIN,TOTAL 0.6 MG/DL (0.1-1.0)
[2020-06-25 14:43] LABS: ALKALINE PHOSPHATASE 78 U/L (40-136); CREATININE SERUM 0.98 MG/DL (0.60-1.30); GFR ESTIMATED > 60
[2020-06-25 14:44] LABS: BUN/CREATININE RATIO 11; CHOLESTEROL 175 MG/DL (< 200)
[2020-06-25 14:45] LABS: HDL CHOLESTEROL 35 MG/DL (40-60)
[2020-06-25 14:46] LABS: ALANINE AMINOTRANSFERASE 27 U/L (0-55)
== END ==
LOC: LAB 13:49
PROVIDERS: ATTEND Family Medicine
DX: Z00.00 Encounter for general adult medical examination without abnormal findings (principal); E11.9 Type 2 diabetes mellitus without complications; E03.9 Hypothyroidism, unspecified; E66.01 Morbid (severe) obesity due to excess calories
CPT/HCPCS: 36415; 80053; 80061; 84443

== ENCOUNTER → 2020-07-16 | Outpatient (CLI) | payer SELFPAY ==
[2020-07-16 12:15] LABS: BILIRUBIN,URINE NEGATIVE (NEGATIVE); CLARITY,URINE CLEAR; COLOR,URINE YELLOW; GLUCOSE, URINE (UA) NEGATIVE (NEGATIVE); KETONES,URINE NEGATIVE (NEGATIVE); LEUKOCYTE ESTERASE ,URINE NEGATIVE (NEGATIVE); NITRITE,URINE NEGATIVE (NEGATIVE); PROTEIN,URINE NEGATIVE (NEGATIVE)
[2020-07-16 12:21] LABS: BASOPHILS % (AUTO) 0 % (0-10); EOSINOPHILS # (AUTO) 0.1 10^3/uL (0.0-0.3); EOSINOPHILS % (AUTO) 2 % (0-10); HEMATOCRIT 46 % (40-54); HEMOGLOBIN 14.9 g/dL (13.3-17.7); LYMPHOCYTES # (AUTO) 2.6 10^3/uL (1.0-4.0); LYMPHOCYTES % (AUTO) 35 % (12-44); MEAN CORPUSCULAR HEMOGLOBIN 28 pg (25-34); MEAN CORPUSCULAR HGB CONC 33 g/dL (32-36); MEAN CORPUSCULAR VOLUME 87 fL (80-99); MEAN PLATELET VOLUME 9.5 fL (9.0-12.2); MONOCYTES # (AUTO) 0.4 10^3/uL (0.0-1.0); MONOCYTES % (AUTO) 5 % (0-12); NEUTROPHILS # (AUTO) 4.4 10^3/uL (1.8-7.8); NEUTROPHILS % (AUTO) 57 % (42-75); PLATELET COUNT 269 10^3/uL (130-400); WHITE BLOOD COUNT 7.6 10^3/uL (4.3-11.0)
[2020-07-16 12:24] LABS: BACTERIA,URINE NEGATIVE /HPF; SQUAMOUS EPITHELIAL CELL,UR 0-2 /HPF; WBC,URINE RARE /HPF
== END ==
LOC: LAB 11:54
PROVIDERS: ATTEND Nurse Practitioner
DX: I73.9 Peripheral vascular disease, unspecified (principal); Z83.3 Family history of diabetes mellitus
CPT/HCPCS: 36415; 81000; 83036; 85025

== ENCOUNTER → 2020-07-26 | Outpatient (CLI) | payer SELFPAY ==
[~2020-07-26] MED LIST changes: +CATHETER FLUSH 10 ML SYR IV PRN; +HOLD METFORMIN - RECEIVED CONTRAST 20 ML VIAL IV SCH; +IOHEXOL 350 MG/ML 100 ML (OMNIPAQUE 350) VIAL IV ONE; +NS 100 ML (IVPB) BAG IV ONE
--- NOTE | 2020-07-26 12:18 | Diagnostic Imaging Report ---
PROCEDURE: CT Angio Abdomen/Pelvis with. TECHNIQUE: Multiple contiguous axial images were obtained through the abdomen and pelvis after the uneventful bolus administration of intravenous contrast. Sagittal and coronal MIP reconstructions with then performed. All CT scans use one or more of the following dose optimizing techniques: automated exposure control, MA and/or KvP adjustment based on patient size and exam type or iterative reconstruction. INDICATION: Peripheral vascular disease. FINDINGS: The abdominal aorta is patent and normal in caliber. The aorta bifurcation patent and normal. The common internal and external iliac arteries patent. The bilateral common femorals and proximal SFAs and profunda patent and unremarkable. No periarterial edema or inflammatory reaction. No intimal injury or dissection. There is progressive fatty infiltration of the liver without bile duct dilatation. No visualized biliary calculus. Spleen, adrenals and pancreas negative. The kidneys are unobstructed. There is no ileus or bowel obstruction. No ascites, abscess, hematoma or acute fluid collection. IMPRESSION: 1. No vascular abnormality identified. No obstructive features, inflammatory process or acute appearing abnormalities. 2. Progressive hepatic steatosis. Dictated by: Dictated on workstation # [id number]
== END ==
LOC: RAD 11:45
PROVIDERS: ATTEND Nurse Practitioner
DX: I73.9 Peripheral vascular disease, unspecified (principal); K76.0 Fatty (change of) liver, not elsewhere classified
CPT/HCPCS: 74174

== ENCOUNTER 2021-02-12 14:48 | Emergency (ER) | payer SELFPAY ==
[~2021-02-12] VITALS: Ht 170 cm; Wt 142.9 kg
[~2021-02-12 14:48] MED LIST changes: -CATHETER FLUSH 10 ML SYR IV PRN; -HOLD METFORMIN - RECEIVED CONTRAST 20 ML VIAL IV SCH; -IOHEXOL 350 MG/ML 100 ML (OMNIPAQUE 350) VIAL IV ONE; -NS 100 ML (IVPB) BAG IV ONE
--- NOTE | 2021-02-12 15:14 | ED Abdominal Pain ---
General Chief Complaint: Abdominal/GI Problems Stated Complaint: PAIN IN ABD R SIDE,ARMS WEAK,CP,LIGHTHEADED Source of Information: Patient Exam Limitations: No Limitations History of Present Illness Date Seen by Provider: Feb 12, 2021 Time Seen by Provider: 15:00 Initial Comments Patient is a 25-year-old morbidly obese male who presents to the emergency department with a chief complaint of right lower quadrant abdominal pain. Patient states onset of symptoms while he was at work at about 2:00 this afternoon. He did not take anything for his symptoms. He endorses a generally feeling weak and lightheaded, having a little chest discomfort. Denies fevers or chills. Is not nauseous or having any diarrhea. Normal urinary output without dysuria urgency or frequency. Moving around makes his pain worse nothing makes it any better. Was recently diagnosed with diabetes about 5 months ago. Admits to not taking his medications as prescribed because he "forgets". Has been having increasing swelling to the bilateral lower extremities. Denies any skin wounds, rashes or sores. All other review of systems reviewed and negative except as stated. Timing/Duration: 1-3 Hours Severity/Quality: Moderate, Aching Location: RLQ Radiation: Epigastric Activities at Onset: Activity Modifying Factors: Improves With Other (Lightheaded, dizzy) Associated Symptoms: Weakness Allergies and Home Medications Allergies Coded Allergies: No Known Drug Allergies (Unverified , 12/25/11) Patient Home Medication List Home Medication List Reviewed: Yes Hydrocodone Bit/Acetaminophen (Lortab 7.5 Mg Tablet) 1 Each Tablet, 1-2 EACH PO Q4H Prescribed by: SENIA BAEZA on 12/21/16 1519 Levothyroxine Sodium (Levothyroxine Sodium) 75 Mcg Tablet, 75 MCG PO DAILY, (Reported) Entered as Reported by: MINOO DE LA ROSA on 12/21/16 1127 Review of Systems Review of Systems Constitutional: see HPI, malaise, weakness EENTM: No Symptoms Reported Respiratory: No Symptoms Reported Cardiovascular: No Symptoms Reported, Other (Lower extremity swelling, chronic) Gastrointestinal: Abdominal Pain, Nausea Genitourinary: No Symptoms Reported Musculoskeletal: no symptoms reported Skin: no symptoms reported Psychiatric/Neurological: Headache (Mild headache dizziness and generalized weakness) All Other Systems Reviewed Negative Unless Noted: Yes Past Ofhwiop-Jlnyyw-Yblntm Hx Immunizations Up To Date Tetanus Booster (TDap): Less than 5yrs PED Vaccines UTD: Yes Past Medical History Surgeries: Yes (MOLE REMOVAL) Tonsillectomy Respiratory: No Cardiac: No Neurological: No Reproductive Disorders: No Gastrointestinal: No Musculoskeletal: No Endocrine: Yes Hypothyroidsim Cancer: No Psychosocial: No Integumentary: No Blood Disorders: No Physical Exam Vital Signs Vital Signs - First Documented 02/12/21 14:57 Temp 37.0 Pulse 111 Resp 18 B/P (MAP) 132/71 (91) Pulse Ox 95 O2 Delivery Room Air Capillary Refill : Height/Weight/BMI Height: 5'7.00" Weight: 240lbs. 0.0oz. [id number]; 37.6 BMI Method:Stated General Appearance: WD/WN, no apparent distress HEENT: PERRL/EOMI Neck: normal inspection Respiratory: lungs clear, normal breath sounds, no respiratory distress, no accessory muscle use Cardiovascular: regular rate, rhythm Gastrointestinal: normal bowel sounds, soft, tenderness (Mild tenderness in the extreme right lower quadrant without rebound, involuntary guarding) Extremities: normal range of motion, normal capillary refill, pedal edema (2+ pedal edema bilateral lower extremity) Neurologic/Psychiatric: alert, normal mood/affect, oriented x 3 Skin: normal color, warm/dry Progress/Results/Core Measures Results/Orders Lab Results Laboratory Tests Test 02/12/21 15:00 02/12/21 15:05 02/12/21 15:23 Range/Units White Blood Count 9.7 4.3-11.0 10^3/uL Red Blood Count 5.05 4.30-5.52 10^6/uL Hemoglobin 14.2 13.3-17.7 g/dL Hematocrit 42 40-54 % Mean Corpuscular Volume 84 80-99 fL Mean Corpuscular Hemoglobin 28 25-34 pg Mean Corpuscular Hemoglobin Concent 34 32-36 g/dL Red Cell Distribution Width 12.6 10.0-14.5 % Platelet Count 309 130-400 10^3/uL Mean Platelet Volume 9.7 9.0-12.2 fL Immature Granulocyte % (Auto) 0 % Neutrophils (%) (Auto) 68 42-75 % Lymphocytes (%) (Auto) 25 12-44 % Monocytes (%) (Auto) 6 0-12 % Eosinophils (%) (Auto) 1 0-10 % Basophils (%) (Auto) 0 0-10 % Neutrophils # (Auto) 6.6 1.8-7.8 X 10^3 Lymphocytes # (Auto) 2.4 1.0-4.0 X 10^3 Monocytes # (Auto) 0.5 0.0-1.0 X 10^3 Eosinophils # (Auto) 0.1 0.0-0.3 10^3/uL Basophils # (Auto) 0.0 0.0-0.1 10^3/uL Immature Granulocyte # (Auto) 0.0 0.0-0.1 10^3/uL Sodium Level 135 135-145 MMOL/L Potassium Level 3.9 3.6-5.0 MMOL/L Chloride Level 98 98-107 MMOL/L Carbon Dioxide Level 24 21-32 MMOL/L Anion Gap 13 5-14 MMOL/L Blood Urea Nitrogen 9 7-18 MG/DL Creatinine 0.99 0.60-1.30 MG/DL Estimat Glomerular Filtration Rate 92 BUN/Creatinine Ratio 9 Glucose Level 409 *H 70-105 MG/DL Calcium Level 9.9 8.5-10.1 MG/DL Corrected Calcium 9.8 8.5-10.1 MG/DL Total Bilirubin 0.4 0.1-1.0 MG/DL Aspartate Amino Transf (AST/SGOT) 30 5-34 U/L Alanine Aminotransferase (ALT/SGPT) 27 0-55 U/L Alkaline Phosphatase 78 40-136 U/L Total Protein 7.7 6.4-8.2 GM/DL Albumin 4.1 3.2-4.5 GM/DL Glucometer 410 *H 70-110 MG/DL Urine Color YELLOW Urine Clarity CLEAR Urine pH 6.0 5-9 Urine Specific [place] 1.025 H 1.016-1.022 Urine Protein NEGATIVE NEGATIVE Urine Glucose (UA) 3+ H NEGATIVE Urine Ketones NEGATIVE NEGATIVE Urine Nitrite NEGATIVE NEGATIVE Urine Bilirubin NEGATIVE NEGATIVE Urine Urobilinogen 0.2 < = 1.0 MG/DL Urine Leukocyte Esterase NEGATIVE NEGATIVE Urine RBC (Auto) NEGATIVE NEGATIVE Urine RBC NONE /HPF Urine WBC NONE /HPF Urine Squamous Epithelial Cells 0-2 /HPF Urine Crystals NONE /LPF Urine Bacteria NEGATIVE /HPF Urine Casts NONE /LPF Urine Mucus NEGATIVE /LPF Urine Culture Indicated NO My Orders Orders - CHING GREEN MD Ed Iv/Invasive Line Start (02/12/21 15:11) Cbc With Automated Diff (02/12/21 15:11) Comprehensive Metabolic Panel (02/12/21 15:11) Ua Culture If Indicated (02/12/21 15:11) Ns Iv 1000 Ml (Sodium Chloride 0.9%) (02/12/21 15:15) Ketorolac Injection (Toradol Injection) (02/12/21 16:30) Accucheck Stat ONCE (02/12/21 16:53) Medications Given in ED Current Medications Medications Dose Ordered Sig/Mc Route Start Time Stop Time Status Last Admin Dose Admin Ketorolac Tromethamine 15 mg ONCE ONCE IVP 02/12/21 16:30 02/12/21 16:31 DC 02/12/21 16:32 15 MG Vital Signs/I&O 02/12/21 14:57 Temp 37.0 Pulse 111 Resp 18 B/P (MAP) 132/71 (91) Pulse Ox 95 O2 Delivery Room Air Departure Impression Primary Impression: Abdominal pain Qualified Codes: R10.31 - Right lower quadrant pain Additional Impression: Hyperglycemia due to type 2 diabetes mellitus Qualified Codes: E11.65 - Type 2 diabetes mellitus with hyperglycemia Disposition: 01 HOME, SELF-CARE Condition: Stable Departure-Patient Inst. Decision time for Depature: 16:58 Referrals: ADALGISA VASQUEZ MD (PCP/Family) Primary Care Physician Patient Instructions: Abdominal Pain, Adult ED, Type 2 Diabetes (DC) Add. Discharge Instructions: Please keep a close eye on your blood sugars. Check them daily. It is very important that you take your diabetes medications as prescribed on a daily basis in order to prevent long-term internal organ damage. Long-term complications of persistently high blood sugar include kidney failure, liver disease, heart attack, stroke, vision problems, impotence and other circulatory complications. Monitor your abdominal pain closely over the next 24 to 48 hours. If you develop a fever, vomiting, black or bloody stools or any other emergent concerning symptoms please come back to the emergency room for reevaluation. All discharge instructions reviewed with patient and/or family. Voiced understanding. CHING GREEN MD Feb 12, 2021 15:14
[2021-02-12] MEDS ORDERED: NS IV 1000 ML 1,000 ML IV SCH (15:15)
[2021-02-12 15:21] LABS: BASOPHILS % (AUTO) 0 % (0-10); EOSINOPHILS # (AUTO) 0.1 10^3/uL (0.0-0.3); EOSINOPHILS % (AUTO) 1 % (0-10); HEMATOCRIT 42 % (40-54); HEMOGLOBIN 14.2 g/dL (13.3-17.7); LYMPHOCYTES # (AUTO) 2.4 X 10^3 (1.0-4.0); LYMPHOCYTES % (AUTO) 25 % (12-44); MEAN CORPUSCULAR HEMOGLOBIN 28 pg (25-34); MEAN CORPUSCULAR HGB CONC 34 g/dL (32-36); MEAN CORPUSCULAR VOLUME 84 fL (80-99); MEAN PLATELET VOLUME 9.7 fL (9.0-12.2); MONOCYTES # (AUTO) 0.5 X 10^3 (0.0-1.0); MONOCYTES % (AUTO) 6 % (0-12); NEUTROPHILS # (AUTO) 6.6 X 10^3 (1.8-7.8); NEUTROPHILS % (AUTO) 68 % (42-75); PLATELET COUNT 309 10^3/uL (130-400); WHITE BLOOD COUNT 9.7 10^3/uL (4.3-11.0)
[2021-02-12 15:26] LABS: ALBUMIN 4.1 GM/DL (3.2-4.5); POTASSIUM 3.9 MMOL/L (3.6-5.0)
[2021-02-12 15:27] LABS: CALCIUM 9.9 MG/DL (8.5-10.1)
[2021-02-12 15:28] LABS: TOTAL PROTEIN 7.7 GM/DL (6.4-8.2)
[2021-02-12 15:28] LABS: BILIRUBIN,URINE NEGATIVE (NEGATIVE); CLARITY,URINE CLEAR; COLOR,URINE YELLOW; GLUCOSE, URINE (UA) 3+ (NEGATIVE); KETONES,URINE NEGATIVE (NEGATIVE); LEUKOCYTE ESTERASE ,URINE NEGATIVE (NEGATIVE); NITRITE,URINE NEGATIVE (NEGATIVE); PROTEIN,URINE NEGATIVE (NEGATIVE)
[2021-02-12 15:30] LABS: BILIRUBIN,TOTAL 0.4 MG/DL (0.1-1.0)
[2021-02-12 15:32] LABS: CREATININE SERUM 0.99 MG/DL (0.60-1.30)
[2021-02-12 15:42] LABS: BACTERIA,URINE NEGATIVE /HPF; SQUAMOUS EPITHELIAL CELL,UR 0-2 /HPF
[2021-02-12] MEDS ORDERED: KETOROLAC 30 MG/ML VIAL IVP ONE (16:30)
[2021-02-12 17:40] VITALS: BP 141/81
== END 2021-02-12 17:40 | disposition home or self-care (01) ==
LOC: EDUNIT# 14:48 → ER 14:51
DX: R10.31 Right lower quadrant pain (principal); E11.65 Type 2 diabetes mellitus with hyperglycemia; E03.9 Hypothyroidism, unspecified; Z79.890 Hormone replacement therapy
CPT/HCPCS: 36415; 80053; 81000; 82947; 85025; 93005